=== PATIENT | female | born 1995 | race Two or more races ===

== ENCOUNTER 2021-02-26 03:06 | Inpatient (IN) | payer BC ==
[2021-02-26] MEDS ORDERED: Sodium Chloride 0.9% 10 ML SDV IV PRN (03:45)
[2021-02-26] MEDS ORDERED: Ondansetron 4 MG/2 ML SDV IVPUSH PRN (03:45)
[2021-02-26] MEDS ORDERED: Tranexamic Acid 1,000 MG in Sodium Chloride 0.9% 100 ML IV PRN (03:45)
[2021-02-26] MEDS ORDERED: Oxytocin/0.9 % Sodium Chloride 30 UNIT/500 ML BAG IV SCH ×2 (03:45)
[2021-02-26] MEDS ORDERED: Methylergonovine 0.2 MG/1 ML Amp IM PRN (03:45)
[2021-02-26] MEDS ORDERED: Sodium Chloride 0.9% 10 ML Syringe FLUSH PRN (03:45)
[2021-02-26] MEDS ORDERED: Terbutaline 1 MG/ML SDV SUBCUT PRN (03:45)
[2021-02-26] MEDS ORDERED: Butorphanol 1 MG/ML SDV IVPUSH PRN (03:45)
[2021-02-26] MEDS ORDERED: Misoprostol 200 MCG Tab PO PRN (03:45)
[2021-02-26] MEDS ORDERED: Lidocaine 1% 50 ML MDV INJECT PRN (03:45)
[2021-02-26] MEDS ORDERED: Ampicillin 2 GM in Sodium Chloride 0.9% 100 ML IV ONE ×2 (03:45→04:07)
[2021-02-26] MEDS ORDERED: Carboprost Tromethamine 250 MCG/1 ML Amp IM PRN (03:45)
[2021-02-26] MEDS ORDERED: Water For Irrigation,Sterile 1,000 ML Container IRR PRN (03:45)
[2021-02-26] MEDS: Lactated Ringers 1,000 ML IV SCH ×4 (04:41→14:49)
[2021-02-26] MEDS: Ampicillin 1 GM in Sodium Chloride 0.9% 50 ML IV SCH ×3 (09:17→18:07)
[2021-02-26] MEDS ORDERED: fentaNYL 100 MCG/2 ML SDV ONE (14:06)
[2021-02-26] MEDS ORDERED: Ropivacaine HCl/PF 200 ML ONE (14:07)
[2021-02-26] MEDS ORDERED: Ropivacaine 0.2% PF 2 MG/ML 20 ML SDV ONE (14:07)
--- NOTE | 2021-02-26 14:50 | PCM.PREANE ---
Preanesthetic Assessment - Anesthesia/Transfusion/Family Hx Anesthesia History: Prior Anesthesia Without Reaction Family History of Anesthesia Reaction: No Transfusion History: No Prior Transfusion(s) Intubation History: Unknown - Review of Systems General: No Symptoms Pulmonary: No Symptoms Cardiovascular: No Symptoms Gastrointestinal: No Symptoms Neurological: No Symptoms Other: Reports: None - Physical Assessment Height: 5 ft 6 in Weight: 69.853 kg ASA Class: 2 Mental Status: Alert & Oriented x3 Airway Class: Mallampati = 2 Dentition: Reports: Normal Dentition Thyro-Mental Finger Breadths: 3 ROM/Head Extension: Full Lungs: Clear to Auscultation, Normal Respiratory Effort Cardiovascular: Regular Rate, Regular Rhythm - Lab Values: Laboratory Last Values WBC 7.97 K/uL (4.0-11.0) 02/26/21 03:55 RBC 4.71 M/uL (4.30-5.90) 02/26/21 03:55 Hgb 10.1 g/dL (12.0-16.0) L 02/26/21 03:55 Hct 30.7 % (36.0-46.0) L 02/26/21 03:55 MCV 65.2 fL (80.0-98.0) L 02/26/21 03:55 MCH 21.4 pg (27.0-32.0) L 02/26/21 03:55 MCHC 32.9 g/dL (31.0-37.0) 02/26/21 03:55 RDW Std Deviation 36.6 fl (28.0-62.0) 02/26/21 03:55 RDW Coeff of Ines 16 % (11.0-15.0) H 02/26/21 03:55 Plt Count 186 K/uL (150-400) 02/26/21 03:55 Nucleated RBC % 0.0 /100WBC 02/26/21 03:55 Nucleated RBCs # 0 K/uL 02/26/21 03:55 SARS-CoV-2 RNA ([facility]ANLEY) NEGATIVE (NEGATIVE) 02/26/21 03:26 Blood Type O POSITIVE 02/26/21 03:55 Antibody Screen NEGATIVE 02/26/21 03:55 - Allergies Allergies/Adverse Reactions: Allergies Allergy/AdvReac Type Severity Reaction Status Date / Time No Known Allergies Allergy Verified 10/18/19 07:55 MST - Blood Blood Available: No - Anesthesia Plan Pre-Op Medication Ordered: None - Acknowledgements Anesthesia Type Planned: Epidural Pt an Appropriate Candidate for the Planned Anesthesia: Yes Alternatives and Risks of Anesthesia Discussed w Pt/Guardian: Yes Pt/Guardian Understands and Agrees with Anesthesia Plan: Yes PreAnesthesia Questionnaire - Past Health History Medical/Surgical History: Denies Medical/Surgical History Gastrointestinal History: Reports: GERD 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: Hematologic History: Reports: Other (See Below) - Infectious Disease History Infectious Disease History: Reports: Chicken Pox - Past Surgical History HEENT Surgical History: Reports: Oral Surgery - SUBSTANCE USE Tobacco Use Status *Q: Never Tobacco User Second Hand Smoke Exposure: No Recreational Drug Use History: No - HOME MEDS Home Medications: Home Meds Mv-Mn/Iron/FA/Herbal/Digestive [ One Tablet] 1 tab PO DAILY 10/18/19 [History] Ibuprofen [Motrin] 600 mg PO Q4H PRN tablet 10/19/19 [Rx] - CURRENT (IN HOUSE) MEDS Current Meds: Current Medications Butorphanol Tartrate (Butorphanol 1 Mg/Ml Sdv) 1 mg IVPUSH Q1H PRN PRN Reason: Pain (severe 7-10) Carboprost Tromethamine (Carboprost Tromethamine 250 Mcg/1 Ml Amp) 250 mcg IM ASDIRECTED PRN PRN Reason: Post Hemorrhage Oxytocin/Sodium Chloride (Oxytocin 30 Unit/500 Ml-Ns) 30 unit in 500 mls @ 999 mls/hr IV TITRATE [facility] Tranexamic Acid 1,000 mg/ (Sodium Chloride) 110 mls @ 660 mls/hr IV ONETIME PRN PRN Reason: Bleeding Oxytocin/Sodium Chloride (Oxytocin 30 Unit/500 Ml-Ns) 30 unit in 500 mls @ 2 mls/hr IV TITRATE [facility]; Protocol Last Titration: 02/26/21 10:17 Dose: 10 munits/min, 10 mls/hr Documented by: Lactated Ringer's (Ringers, Lactated) 1,000 mls @ 150 mls/hr IV ASDIRECTED [facility] Last Admin: 02/26/21 14:16 Dose: 999 mls/hr Documented by: Ampicillin Sodium 1 gm/ Sodium (Chloride) 50 mls @ 100 mls/hr IV Q4H [facility] Last Admin: 02/26/21 13:16 Dose: 100 mls/hr Documented by: Lidocaine HCl (Lidocaine 1% 50 Ml Mdv) 50 ml INJECT ONETIME PRN PRN Reason: Laceration repair Methylergonovine Maleate (Methylergonovine 0.2 Mg/1 Ml Amp) 0.2 mg IM ASDIRECTED PRN PRN Reason: Post Hemorrhage Misoprostol (Misoprostol 200 Mcg Tab) 200 mcg PO ONETIME PRN PRN Reason: Post Hemorrhage Ondansetron HCl (Ondansetron 4 Mg/2 Ml Sdv) 4 mg IVPUSH Q4H PRN PRN Reason: Nausea/Vomiting Sodium Chloride (Sodium Chloride 0.9% 10 Ml Syringe) 10 ml FLUSH ASDIRECTED PRN PRN Reason: Keep Vein Open Sodium Chloride (Sodium Chloride 0.9% 10 Ml Sdv) 10 ml IV ASDIRECTED PRN PRN Reason: IV Use Sterile Water (Water For Irrigation,Sterile 1,000 Ml Container) 1,000 ml IRR ASDIRECTED PRN PRN Reason: delivery Terbutaline Sulfate (Terbutaline 1 Mg/Ml Sdv) 0.25 mg SUBCUT ASDIRECTED PRN PRN Reason: Tacysystole Discontinued Medications Fentanyl (Fentanyl 100 Mcg/2 Ml Sdv) Confirm Administered Dose 200 mcg .ROUTE .STK-MED ONE Stop: 02/26/21 14:07 Ampicillin Sodium 2 gm/ Sodium (Chloride) 100 mls @ 200 mls/hr IV ONETIME ONE Stop: 02/26/21 04:36 Last Admin: 02/26/21 04:42 Dose: 200 mls/hr Documented by: Ropivacaine (Naropin 0.2%) Confirm Administered Dose 200 mls @ as directed .ROUTE .STK-MED ONE Stop: 02/26/21 14:08 Ropivacaine (Ropivacaine 0.2% Pf 2 Mg/Ml 20 Ml Sdv) Confirm Administered Dose 20 ml .ROUTE .STK-MED ONE Stop: 02/26/21 14:08
--- NOTE | 2021-02-26 15:04 | PCM.SN.2 ---
- Free Text/Narrative Note: called to LD4 for plcmt of VIDHI for laboring patient. Identified, assessed, consent previously signed. Time out done prior to procedure and pt. states understanding of R&B's as descried. Positioned at EOB and sterile prep completed. Local to skin with 1%lido using 4ml. 17ga Tuoey epidural needle placed and advanced slowly until GHASSAN achieved at the L3-4 space. GHASSAN achieved at 6cm depth.Catheter threaded easily and needle removed. Catheter left at 10cm at skin surface. Test dose of 1.5%Lido with 1:200k epi injected slowly and pt. tolerates well. Fent 100mcg bolus given approx 5 minutes later, followed by 4ml bolus of 0.2% ropiv 4-5 minutes after that. Catheter secured and taped, pt to supine with PENG. Infusion with 0.2% Ropiv and 100mcg Fent initiated at 1439. Pt. tolerated entire procedure well and got excellent relief of cntrxn pain.
--- NOTE | 2021-02-26 18:59 | PCM.DEL ---
L & D Note - General Info Date of Service: 02/26/21 Mother's Due Date: 03/07/21 - Delivery Note Labor: Induced by Oxytocin Cervical Ripening Method: Balloon Device Delivery Outcome: Livebirth Infant Delivery Method: Spontaneous Vaginal Delivery-Single Presentation: Right Occiput Posterior (ROP) Nuchal Cord: None Prep: Other Anesthesia Type: Epidural Amniotic Fluid Description: Clear Episiotomy Type: None Suture type: Other (Monocryl) Suture size: 3-0 Placenta: Intact, Spontaneous Cord: 3 Vessels Estimated Blood Loss: 300 Resuscitation Needed: Yes [place]: Suctioned Score 1 min: 9 Score 5 min: 9 Delivery Comments (Free Text/Narrative):: Liveborn male 9/9 weight pending, placenta spontaneous, Schultze intact with 3 vessels. Circumvallate appearance. - General Info Date of Service: 02/26/21 - Patient Data Weight - Most Recent: 69.853 kg I&O - Last 24 Hours: Intake & Output 02/26/21 02/26/21 02/26/21 06:59 14:59 22:59 Intake Total 3000 Balance 3000 Lab Results Last 24 Hours: Laboratory Results - last 24 hr 02/26/21 02/26/21 02/26/21 Range/Units 03:26 03:55 03:55 WBC 7.97 (4.0-11.0) K/uL RBC 4.71 (4.30-5.90) M/uL Hgb 10.1 L (12.0-16.0) g/dL Hct 30.7 L (36.0-46.0) % MCV 65.2 L (80.0-98.0) fL MCH 21.4 L (27.0-32.0) pg MCHC 32.9 (31.0-37.0) g/dL RDW Std Deviation 36.6 (28.0-62.0) fl RDW Coeff of Ines 16 H (11.0-15.0) % Plt Count 186 (150-400) K/uL Nucleated RBC % 0.0 /100WBC Nucleated RBCs # 0 K/uL SARS-CoV-2 RNA ([facility]) NEGATIVE (NEGATIVE) Blood Type O POSITIVE Antibody Screen NEGATIVE Med Orders - Current: Current Medications Butorphanol Tartrate (Butorphanol 1 Mg/Ml Sdv) 1 mg IVPUSH Q1H PRN PRN Reason: Pain (severe 7-10) Carboprost Tromethamine (Carboprost Tromethamine 250 Mcg/1 Ml Amp) 250 mcg IM ASDIRECTED PRN PRN Reason: Post Hemorrhage Oxytocin/Sodium Chloride (Oxytocin 30 Unit/500 Ml-Ns) 30 unit in 500 mls @ 999 mls/hr IV TITRATE [facility] Tranexamic Acid 1,000 mg/ (Sodium Chloride) 110 mls @ 660 mls/hr IV ONETIME PRN PRN Reason: Bleeding Oxytocin/Sodium Chloride (Oxytocin 30 Unit/500 Ml-Ns) 30 unit in 500 mls @ 2 mls/hr IV TITRATE [facility]; Protocol Last Titration: 02/26/21 10:17 Dose: 10 munits/min, 10 mls/hr Documented by: Lactated Ringer's (Ringers, Lactated) 1,000 mls @ 150 mls/hr IV ASDIRECTED [facility] Last Admin: 02/26/21 14:49 Dose: 999 mls/hr Documented by: Ampicillin Sodium 1 gm/ Sodium (Chloride) 50 mls @ 100 mls/hr IV Q4H [facility] Last Admin: 02/26/21 18:07 Dose: 100 mls/hr Documented by: Lidocaine HCl (Lidocaine 1% 50 Ml Mdv) 50 ml INJECT ONETIME PRN PRN Reason: Laceration repair Methylergonovine Maleate (Methylergonovine 0.2 Mg/1 Ml Amp) 0.2 mg IM ASDIRECTED PRN PRN Reason: Post Hemorrhage Misoprostol (Misoprostol 200 Mcg Tab) 200 mcg PO ONETIME PRN PRN Reason: Post Hemorrhage Ondansetron HCl (Ondansetron 4 Mg/2 Ml Sdv) 4 mg IVPUSH Q4H PRN PRN Reason: Nausea/Vomiting Sodium Chloride (Sodium Chloride 0.9% 10 Ml Syringe) 10 ml FLUSH ASDIRECTED PRN PRN Reason: Keep Vein Open Sodium Chloride (Sodium Chloride 0.9% 10 Ml Sdv) 10 ml IV ASDIRECTED PRN PRN Reason: IV Use Sterile Water (Water For Irrigation,Sterile 1,000 Ml Container) 1,000 ml IRR ASDIRECTED PRN PRN Reason: delivery Terbutaline Sulfate (Terbutaline 1 Mg/Ml Sdv) 0.25 mg SUBCUT ASDIRECTED PRN PRN Reason: Tacysystole Discontinued Medications Fentanyl (Fentanyl 100 Mcg/2 Ml Sdv) Confirm Administered Dose 200 mcg .ROUTE .STK-MED ONE Stop: 02/26/21 14:07 Ampicillin Sodium 2 gm/ Sodium (Chloride) 100 mls @ 200 mls/hr IV ONETIME ONE Stop: 02/26/21 04:36 Last Admin: 02/26/21 04:42 Dose: 200 mls/hr Documented by: Ropivacaine (Naropin 0.2%) Confirm Administered Dose 200 mls @ as directed .ROU TE .STK-MED ONE Stop: 02/26/21 14:08 Ropivacaine (Ropivacaine 0.2% Pf 2 Mg/Ml 20 Ml Sdv) Confirm Administered Dose 20 ml .ROUTE .STK-MED ONE Stop: 02/26/21 14:08 - Problem List & Annotations (1) Vaginal delivery SNOMED Code(s): 805312248 Code(s): O80 - ENCOUNTER FOR FULL-TERM UNCOMPLICATED DELIVERY Status: Acute Current Visit: No - Problem List Review Problem List Initiated/Reviewed/Updated: Yes
[2021-02-26] MEDS ORDERED: oxyCODONE 5 MG Tab PO PRN (19:00)
[2021-02-26] MEDS ORDERED: Lanolin 100% Cream 7 GM Tube TOP PRN (19:00)
[2021-02-26] MEDS ORDERED: Ibuprofen 400 MG Tab PO PRN (19:00)
[2021-02-26] MEDS ORDERED: Docusate Sodium 100 MG Cap PO PRN (19:00)
[2021-02-26] MEDS ORDERED: Benzocaine/Menthol 20%-0.5% Spray 78 GM Cannister TOP PRN (19:00)
[2021-02-26] MEDS ORDERED: Bisacodyl 10 MG Supp RECTAL PRN (19:00)
[2021-02-26] MEDS ORDERED: Acetaminophen 500 MG Tab PO PRN ×2 (19:00)
[2021-02-26] MEDS ORDERED: Witch Hazel Medicated Pads 40/Jar TOP PRN (19:00)
--- NOTE | 2021-02-26 20:26 | OR ---
SURGEON: Christa Florian M.D. DATE OF PROCEDURE: 02/26/2021 PREOPERATIVE DIAGNOSES: 1. 38 and 5/7 weeks gestation. 2. Intrauterine growth restriction. POSTOPERATIVE DIAGNOSES: 1. 38 and 5/7 weeks gestation. 2. Intrauterine growth restriction. PROCEDURES: 1. Pitocin induction of labor. 2. Term spontaneous vaginal delivery. PRIMARY SURGEON: Christa Florian M.D. ANESTHESIA: Epidural. ESTIMATED BLOOD LOSS: Less than 300 mL. FINDINGS: Live-born male. score 9 and 9, weighing 2750 g. Placenta delivered spontaneously, Schultze intact, with three vessels with a circumvallate appearance. Perineum intact. COMPLICATIONS: None known. DISPOSITION: Mother and baby in LDR in good condition. BRIEF HISTORY: This is a 26-year-old female. She is G4, P3. She presents at 38 and 5/7 weeks with diagnosis of growth restriction based on the abdominal circumference less than the 10th percentile. She presents for induction of labor 1 cm and thick. She was started on Pitocin. When she was 2 cm and 50%, a balloon catheter was placed through the cervix which was expelled approximately 2 hours later, resulting in her being 4 cm, 70%. She had received an epidural shortly after the cervical catheter had been placed. She had mainly category 1 heart tones with some variable decelerations throughout labor. She progressed to complete. She had artificial rupture of membranes when she was 5 cm dilated. She is known to be group B strep positive. She has received four doses of ampicillin. DESCRIPTION OF PROCEDURE: With the patient in dorsal lithotomy position, the patient pushed over 3 contractions to a 5+ station, at which time the head was delivered spontaneously and atraumatically over the perineum with support in the right occiput posterior position with subsequent delivery of the 's shoulders and body without any difficulty. The infant was bulb-suctioned by nose and mouth and handed to the mother in the presence of nurse attending delivery. The infant was a liveborn male, score 9 and 9, weighing 2750 g. After 1 minute, the cord was doubly clamped and cut and cord blood was collected for cord ABGs as well as routine cord blood sampling. Pitocin was initiated after delivery of the infant to assist with delivery of the placenta which was delivered spontaneously, Schultze intact with three vessels. It did have a circumvallate appearance. Upon inspection of the pelvis and perineum, there were no periurethral, vaginal sidewall, cervical, rectal, or perineal lacerations. EBL was less than 300 mL. There were no known complications. Mother and baby remained in LDR in good condition. The placenta was sent to Pathology for evaluation. BESS CHO /[id number]
[2021-02-27] MEDS: Ibuprofen 800 MG Tab PO PRN ×3 (00:06→20:10)
--- NOTE | 2021-02-27 07:06 | PCM48HPAN ---
Post Anesthesia Note - EVALUATION WITHIN 48HRS OF ANESTHETIC Vital Signs in Normal Range: Yes Patient Participated in Evaluation: Yes Respiratory Function Stable: Yes Airway Patent: Yes Cardiovascular Function Stable: Yes Hydration Status Stable: Yes Pain Control Satisfactory: Yes Nausea and Vomiting Control Satisfactory: Yes Mental Status Recovered: Yes
[2021-02-27] MEDS: Prenatal Multivitamin with Calcium/Folic Acid/Iron Tab PO SCH (08:21)
--- NOTE | 2021-02-27 08:51 | PCM.PNPP ---
- General Info Date of Service: 02/27/21 - Patient Data Vital Signs - Most Recent: Last Vital Signs Temp 97.2 F 02/27/21 08:18 Pulse 57 L 02/27/21 08:18 Resp 18 02/27/21 08:18 BP 101/58 L 02/27/21 08:18 Pulse Ox 99 02/27/21 08:18 Weight - Most Recent: 154 lb I&O - Last 24 Hours: Intake & Output 02/26/21 02/27/21 02/27/21 22:59 06:59 14:59 Intake Total 1500 Output Total Balance 1516 Lab Results - Last 24 Hours: Laboratory Results - last 24 hr 02/26/21 02/27/21 Range/Units 18:47 05:05 Hgb 10.1 L (12.0-16.0) g/dL Hct 30.8 L (36.0-46.0) % Cord ABG pH 7.337 (7.18-7.38) Cord ABG Base Excess -1 H (-10--2) Cord VBG pH 7.328 (7.25-7.45) Cord VBG Base Excess -2 (-10--2) Med Orders - Current: Current Medications Acetaminophen (Acetaminophen 500 Mg Tab) 500 mg PO Q4H PRN PRN Reason: Pain (mild 1-3) Acetaminophen (Acetaminophen 500 Mg Tab) 1,000 mg PO Q4H PRN PRN Reason: Pain (mild 1-3) Benzocaine/Menthol (Benzocaine/Menthol 20%-0.5% [place] 78 Gm Cannister) 78 gm TOP ASDIRECTED PRN PRN Reason: Perineal Comfort Measure Bisacodyl (Bisacodyl 10 Mg Supp) 10 mg RECTAL ONETIME PRN PRN Reason: Constipation Docusate Sodium (Docusate Sodium 100 Mg Cap) 100 mg PO Q12H PRN PRN Reason: Constipation Emollient Ointment (Lanolin 100% Cream 7 Gm Tube) 0 gm TOP ASDIRECTED PRN PRN Reason: Sore Nipples Ibuprofen (Ibuprofen 400 Mg Tab) 400 mg PO Q4H PRN PRN Reason: Pain (mild 1-3) Ibuprofen (Ibuprofen 800 Mg Tab) 800 mg PO Q6H PRN PRN Reason: Pain (mild 1-3) Last Admin: 02/27/21 08:21 Dose: 800 mg Documented by: Oxycodone HCl (Oxycodone 5 Mg Tab) 5 mg PO Q2H PRN PRN Reason: Pain (severe 7-10) Prenat Multivit/[place]/Iron/Folic Ac ( Multivitamin With Calcium/Folic Acid/Iron Tab) 1 each PO DAILY [facility] Last Admin: 02/27/21 08:21 Dose: 1 each Documented by: Diana Munoz (Diana Munoz Medicated Pads 40/Jar) 1 pad TOP ASDIRECTED PRN PRN Reason: comfort care Discontinued Medications Butorphanol Tartrate (Butorphanol 1 Mg/Ml Sdv) 1 mg IVPUSH Q1H PRN PRN Reason: Pain (severe 7-10) Carboprost Tromethamine (Carboprost Tromethamine 250 Mcg/1 Ml Amp) 250 mcg IM ASDIRECTED PRN PRN Reason: Post Hemorrhage Fentanyl (Fentanyl 100 Mcg/2 Ml Sdv) Confirm Administered Dose 200 mcg .ROUTE .[facility]-MED ONE Stop: 02/26/21 14:07 Last Admin: 02/27/21 07:40 Dose: Not Given Documented by: Oxytocin/Sodium Chloride (Oxytocin 30 Unit/500 Ml-Ns) 30 unit in 500 mls @ 999 mls/hr IV TITRATE [facility] Tranexamic Acid 1,000 mg/ (Sodium Chloride) 110 mls @ 660 mls/hr IV ONETIME PRN PRN Reason: Bleeding Oxytocin/Sodium Chloride (Oxytocin 30 Unit/500 Ml-Ns) 30 unit in 500 mls @ 2 mls/hr IV TITRATE [facility]; Protocol Last Titration: 02/26/21 18:42 Dose: 999 munits/min, 999 mls/hr Documented by: Lactated Ringer's (Ringers, Lactated) 1,000 mls @ 150 mls/hr IV ASDIRECTED [facility] Last Admin: 02/26/21 14:49 Dose: 999 mls/hr Documented by: Ampicillin Sodium 2 gm/ Sodium (Chloride) 100 mls @ 200 mls/hr IV ONETIME ONE Stop: 02/26/21 04:36 Last Admin: 02/26/21 04:42 Dose: 200 mls/hr Documented by: Ampicillin Sodium 1 gm/ Sodium (Chloride) 50 mls @ 100 mls/hr IV Q4H [facility] Last Admin: 02/26/21 18:07 Dose: 100 mls/hr Documented by: Ropivacaine (Naropin 0.2%) Confirm Administered Dose 200 mls @ as directed .ROUTE .[employer] ONE Stop: 02/26/21 14:08 Last Admin: 02/27/21 07:50 Dose: Not Given Documented by: Lidocaine HCl (Lidocaine 1% 50 Ml Mdv) 50 ml INJECT ONETIME PRN PRN Reason: Laceration repair Methylergonovine Maleate (Methylergonovine 0.2 Mg/1 Ml Amp) 0.2 mg IM ASDIRECTED PRN PRN Reason: Post Hemorrhage Misoprostol (Misoprostol 200 Mcg Tab) 200 mcg PO ONETIME PRN PRN Reason: Post Hemorrhage Ondansetron HCl (Ondansetron 4 Mg/2 Ml Sdv) 4 mg IVPUSH Q4H PRN PRN Reason: Nausea/Vomiting Ropivacaine (Ropivacaine 0.2% Pf 2 Mg/Ml 20 Ml Sdv) Confirm Administered Dose 20 ml .ROUTE .[employer] ONE Stop: 02/26/21 14:08 Last Admin: 02/27/21 07:40 Dose: Not Given Documented by: Sodium Chloride (Sodium Chloride 0.9% 10 Ml Syringe) 10 ml FLUSH ASDIRECTED PRN PRN Reason: Keep Vein Open Sodium Chloride (Sodium Chloride 0.9% 10 Ml Sdv) 10 ml IV ASDIRECTED PRN PRN Reason: IV Use Sterile Water (Water For Irrigation,Sterile 1,000 Ml Container) 1,000 ml IRR ASDIRECTED PRN PRN Reason: delivery Terbutaline Sulfate (Terbutaline 1 Mg/Ml Sdv) 0.25 mg SUBCUT ASDIRECTED PRN PRN Reason: Tacysystole - Interaction Support Person: - Recovery Exam Fundal Tone: Firm Fundal Level: 1 Fingerbreadths Below Umbilicus Fundal Placement: Midline Lochia Amount: Small Lochia Color: Rubra/Red Perineum Description: Intact, Minimal Bruising/Swelling Urinary Elimination: Voided - My Orders Last 24 Hours: My Active Orders 02/27/21 Lunch Regular Diet [DIET]
[2021-02-28] MEDS: Prenatal Multivitamin with Calcium/Folic Acid/Iron Tab PO SCH (08:08)
[2021-02-28] MEDS: Ibuprofen 800 MG Tab PO PRN (08:08)
--- NOTE | 2021-02-28 09:31 | PCM.PNPP ---
- General Info Date of Service: 02/28/21 Subjective Update: 26yo P4 s/p PPD2 , breast and bottle feeding , normal lochia Denies any complains Functional Status: Reports: Pain Controlled, Tolerating Diet, Ambulating, Urinating - Review of Systems General: Reports: No Symptoms HEENT: Reports: No Symptoms Pulmonary: Reports: No Symptoms Cardiovascular: Reports: No Symptoms Gastrointestinal: Reports: No Symptoms Genitourinary: Reports: No Symptoms Musculoskeletal: Reports: No Symptoms Skin: Reports: No Symptoms Neurological: Reports: No Symptoms Psychiatric: Reports: No Symptoms - General Info Date of Service: 02/28/21 - Patient Data Vital Signs - Most Recent: Last Vital Signs Temp 36.4 C 02/28/21 05:00 Pulse 59 L 02/28/21 05:00 Resp 18 02/28/21 05:00 BP 128/70 02/28/21 05:00 Pulse Ox 97 02/28/21 05:00 Weight - Most Recent: 69.853 kg Lab Results - Last 24 Hours: Laboratory Results - last 24 hr 02/26/21 Range/Units 03:55 RPR Non-Reac (Non-Reac) Med Orders - Current: Current Medications Acetaminophen (Acetaminophen 500 Mg Tab) 500 mg PO Q4H PRN PRN Reason: Pain (mild 1-3) Acetaminophen (Acetaminophen 500 Mg Tab) 1,000 mg PO Q4H PRN PRN Reason: Pain (mild 1-3) Benzocaine/Menthol (Benzocaine/Menthol 20%-0.5% [place] 78 Gm Cannister) 78 gm TOP ASDIRECTED PRN PRN Reason: Perineal Comfort Measure Bisacodyl (Bisacodyl 10 Mg Supp) 10 mg RECTAL ONETIME PRN PRN Reason: Constipation Docusate Sodium (Docusate Sodium 100 Mg Cap) 100 mg PO Q12H PRN PRN Reason: Constipation Last Admin: 02/28/21 08:08 Dose: 100 mg Documented by: Emollient Ointment (Lanolin 100% Cream 7 Gm Tube) 0 gm TOP ASDIRECTED PRN PRN Reason: Sore Nipples Last Admin: 02/28/21 08:09 Dose: 7 gm Documented by: Ibuprofen (Ibuprofen 400 Mg Tab) 400 mg PO Q4H PRN PRN Reason: Pain (mild 1-3) Ibuprofen (Ibuprofen 800 Mg Tab) 800 mg PO Q6H PRN PRN Reason: Pain (mild 1-3) Last Admin: 02/28/21 08:08 Dose: 800 mg Documented by: Oxycodone HCl (Oxycodone 5 Mg Tab) 5 mg PO Q2H PRN PRN Reason: Pain (severe 7-10) Prenat Multivit/[place]/Iron/Folic Ac ( Multivitamin With Calcium/Folic Acid/Iron Tab) 1 each PO DAILY [facility] Last Admin: 02/28/21 08:08 Dose: 1 each Documented by: Diana Munoz (Diana Munoz Medicated Pads 40/Jar) 1 pad TOP ASDIRECTED PRN PRN Reason: comfort care Discontinued Medications Butorphanol Tartrate (Butorphanol 1 Mg/Ml Sdv) 1 mg IVPUSH Q1H PRN PRN Reason: Pain (severe 7-10) Carboprost Tromethamine (Carboprost Tromethamine 250 Mcg/1 Ml Amp) 250 mcg IM ASDIRECTED PRN PRN Reason: Post Hemorrhage Fentanyl (Fentanyl 100 Mcg/2 Ml Sdv) Confirm Administered Dose 200 mcg .ROUTE .[facility]-MED ONE Stop: 02/26/21 14:07 Last Admin: 02/27/21 07:40 Dose: Not Given Documented by: Oxytocin/Sodium Chloride (Oxytocin 30 Unit/500 Ml-Ns) 30 unit in 500 mls @ 999 mls/hr IV TITRATE [facility] Tranexamic Acid 1,000 mg/ (Sodium Chloride) 110 mls @ 660 mls/hr IV ONETIME PRN PRN Reason: Bleeding Oxytocin/Sodium Chloride (Oxytocin 30 Unit/500 Ml-Ns) 30 unit in 500 mls @ 2 mls/hr IV TITRATE [facility]; Protocol Last Titration: 02/26/21 18:42 Dose: 999 munits/min, 999 mls/hr Documented by: Lactated Ringer's (Ringers, Lactated) 1,000 mls @ 150 mls/hr IV ASDIRECTED [facility] Last Admin: 02/26/21 14:49 Dose: 999 mls/hr Documented by: Ampicillin Sodium 2 gm/ Sodium (Chloride) 100 mls @ 200 mls/hr IV ONETIME ONE Stop: 02/26/21 04:36 Last Admin: 02/26/21 04:42 Dose: 200 mls/hr Documented by: Ampicillin Sodium 1 gm/ Sodium (Chloride) 50 mls @ 100 mls/hr IV Q4H [facility] Last Admin: 02/26/21 18:07 Dose: 100 mls/hr Documented by: Ropivacaine (Naropin 0.2%) Confirm Administered Dose 200 mls @ as directed .ROUTE .[employer] ONE Stop: 02/26/21 14:08 Last Admin: 02/27/21 07:50 Dose: Not Given Documented by: Lidocaine HCl (Lidocaine 1% 50 Ml Mdv) 50 ml INJECT ONETIME PRN PRN Reason: Laceration repair Methylergonovine Maleate (Methylergonovine 0.2 Mg/1 Ml Amp) 0.2 mg IM ASDIRECTED PRN PRN Reason: Post Hemorrhage Misoprostol (Misoprostol 200 Mcg Tab) 200 mcg PO ONETIME PRN PRN Reason: Post Hemorrhage Ondansetron HCl (Ondansetron 4 Mg/2 Ml Sdv) 4 mg IVPUSH Q4H PRN PRN Reason: Nausea/Vomiting Ropivacaine (Ropivacaine 0.2% Pf 2 Mg/Ml 20 Ml Sdv) Confirm Administered Dose 20 ml .ROUTE .[employer] ONE Stop: 02/26/21 14:08 Last Admin: 02/27/21 07:40 Dose: Not Given Documented by: Sodium Chloride (Sodium Chloride 0.9% 10 Ml Syringe) 10 ml FLUSH ASDIRECTED PRN PRN Reason: Keep Vein Open Sodium Chloride (Sodium Chloride 0.9% 10 Ml Sdv) 10 ml IV ASDIRECTED PRN PRN Reason: IV Use Sterile Water (Water For Irrigation,Sterile 1,000 Ml Container) 1,000 ml IRR ASDIRECTED PRN PRN Reason: delivery Terbutaline Sulfate (Terbutaline 1 Mg/Ml Sdv) 0.25 mg SUBCUT ASDIRECTED PRN PRN Reason: Tacysystole - Infant Interaction Support Person: - Recovery Exam Fundal Tone: Firm Fundal Level: 1 Fingerbreadths Below Umbilicus Fundal Placement: Midline Lochia Amount: Scant Lochia Color: Rubra/Red Perineum Description: Intact, Minimal Bruising/Swelling Episiotomy/Laceration: None Bladder Status: Voiding Urinary Elimination: Voided - Exam General: Alert HEENT: Pupils Equal Neck: Supple Lungs: Clear to Auscultation Cardiovascular: Regular Rate, Regular Rhythm GI/Abdominal Exam: Normal Bowel Sounds Neurological: No New Focal Deficit Psy/Mental Status: Alert - Problem List & Annotations (1) Vaginal delivery SNOMED Code(s): 397357705 Code(s): O80 - ENCOUNTER FOR FULL-TERM UNCOMPLICATED DELIVERY Status: Acute Current Visit: No - Problem List Review Problem List Initiated/Reviewed/Updated: Yes - Assessment Assessment:: 26yo P4 s/p PPD2 , stable - Plan Plan:: Routine Discharge home Continue vitamins
== END 2021-02-28 11:45 | disposition home or self-care (01) | DRG 560 ==
LOC: MW.OBCHECK 03:06 → MW.OB 03:08 → MW.OBCHECK 03:45 → OBSVTOIN 18:42 → MW.OB 23:26
PROVIDERS: ADMIT Obstetrics & Gynecology; ATTEND Obstetrics & Gynecology
PROC: 10E0XZZ Delivery of Products of Conception, External Approach (ICD-10-PCS; principal; 2021-02-26)
PROC: 3E033VJ Introduction of Other Hormone into Peripheral Vein, Percutaneous Approach (ICD-10-PCS; 2021-02-26)
PROC: 10907ZC Drainage of Amniotic Fluid, Therapeutic from Products of Conception, Via Natural or Artificial Opening (ICD-10-PCS; 2021-02-26)
DX: O36.5930 Maternal care for other known or suspected poor fetal growth, third trimester, not applicable or unspecified (principal); Z3A.38 38 weeks gestation of pregnancy; Z37.0 Single live birth; O99.824 Streptococcus B carrier state complicating childbirth; Z20.822 Contact with and (suspected) exposure to COVID-19
CPT/HCPCS: 36415; 51702; 59025; 59409; 82803; 85014; 85018; 85027; 86592; 86850; 86900; 86901; A9270-GY; J0290; J2590; J2795; J3010; J7120; U0002